=== PATIENT | female | born 1985 | race Caucasian/White ===

== ENCOUNTER 2019-03-21 18:50 | Outpatient (CLI) | payer OTHER ==
[2019-03-22] MEDS ORDERED: PREN1TAB60 PO (15:33)
[2019-03-22] MEDS ORDERED: VALA10004 PO (15:33)
== END 2019-03-21 20:57 | disposition home or self-care (01) ==
LOC: LDOP 18:50
PROVIDERS: ATTEND Obstetrics & Gynecology
DX: Z34.83 Encounter for supervision of other normal pregnancy, third trimester (principal); Z3A.39 39 weeks gestation of pregnancy
CPT/HCPCS: 59025; 89060; 99211; G0463; Q0114

== ENCOUNTER 2019-03-22 15:27 | Outpatient (CLI) | payer SELFPAY ==
[~2019-03-22] VITALS: Ht 166.4 cm; Wt 94.0 kg
[2019-03-22] MEDS ORDERED: PREN1TAB60 PO (15:33)
[2019-03-22] MEDS ORDERED: VALA10004 PO (15:33)
[2019-03-22 15:37] VITALS: BP 130/66
[2019-03-22 17:36] LABS: MICROSCOPIC AUTO
== END 2019-03-22 17:55 | disposition home or self-care (01) ==
LOC: LDOP 15:27
PROVIDERS: ATTEND Obstetrics & Gynecology
DX: O26.893 Other specified pregnancy related conditions, third trimester (principal); R10.9 Unspecified abdominal pain; Z3A.39 39 weeks gestation of pregnancy
CPT/HCPCS: 59025; 81001; 99211; G0463

== ENCOUNTER 2019-03-23 03:25 | Inpatient (IN) | payer OTHER ==
[~2019-03-23] VITALS: Ht 167.6 cm; Wt 92.7 kg
[~2019-03-23 03:25] MED LIST: PREN1TAB60 PO; VALA10004 PO
[2019-03-23 03:30] VITALS: BP 125/69
[2019-03-23] MEDS: LACTATED RINGERS 1,000 ML IV SCH ×5 (03:45→23:41)
[2019-03-23] MEDS ORDERED: NEWBORN KIT ONE (03:49)
[2019-03-23] MEDS ORDERED: MISOPROSTOL 200 MCG TABLET ONE (03:49)
[2019-03-23] MEDS ORDERED: LIDOCAINE 1%, 20ML ONE (03:49)
[2019-03-23] MEDS ORDERED: OXYTOCIN 30U/ 0.9% NaCL 500ML 500 ML ONE ×2 (03:49→07:54)
[2019-03-23] MEDS ORDERED: AMPICILLIN 2 GM in SODIUM CHLORIDE 0.9% 100 ML IVPB STA (03:56)
[2019-03-23] MEDS ORDERED: D5%-LACTATED RINGERS 1,000 ML IV SCH (03:56)
[2019-03-23] MEDS ORDERED: OXYTOCIN 30U/ 0.9% NaCL 500ML 500 ML IV ONE (03:56)
[2019-03-23] MEDS ORDERED: ONDANSETRON 2MG/ML, 2ML IVPush PRN (04:00)
[2019-03-23] MEDS ORDERED: FENTANYL PF 100 MCG/2ML IVPush PRN (04:00)
[2019-03-23] MEDS ORDERED: TERBUTALINE 1 MG/ML, 1ML IVPush PRN (04:00)
[2019-03-23] MEDS ORDERED: TERBUTALINE 1 MG/ML, 1ML SQ PRN (04:00)
[2019-03-23] MEDS ORDERED: FENTANYL PF 100 MCG/2ML IV PRN (04:00)
[2019-03-23] MEDS ORDERED: CALCIUM CARBONATE 500 MG TAB.CHEW PO PRN (04:00)
[2019-03-23] MEDS ORDERED: FENTANYL/BUPIV./NS/PF 250 ML EPIDCONT ONE (04:05)
[2019-03-23] MEDS ORDERED: FENTANYL PF 100 MCG/2ML ONE ×2 (04:05→06:36)
[2019-03-23 04:21] LABS: BASOPHILS # (AUTO) 0.04 x10^3/uL (0-0.1); BASOPHILS % (AUTO) 0 % (0-1); EOSINOPHILS % (AUTO) 0 % (1-7); LYMPHOCYTES # (AUTO) 0.83 x10^3/uL (1-3.4); LYMPHOCYTES % (AUTO) 5 % (22-44); MD NO; MEAN CORPUSCULAR HEMOGLOBIN 33.3 pg (27.0-34.8); MEAN CORPUSCULAR HGB CONC 33.9 g/dL (32.4-35.8); MEAN CORPUSCULAR VOLUME 98.4 fL (80-100); MEAN PLATELET VOLUME 8.1 fL (7.4-10.4); MONOCYTES # (AUTO) 0.57 x10^3/uL (0.2-0.8); MONOCYTES % (AUTO) 4 % (2-9); NEUTROPHILS # (AUTO) 14.08 x10^3/uL (1.8-6.8); NEUTROPHILS % (AUTO) 91 % (42-75); PLATELET COUNT 228 x10^3/uL (130-400); RED BLOOD COUNT 3.68 x10^6/uL (3.82-5.3); RED CELL DISTRIBUTION WIDTH 13.2 % (9.6-15.2)
[2019-03-23] MEDS ORDERED: FENTANYL/BUPIV./NS/PF 250 ML EPIDCONT SCH (07:41)
[2019-03-23] MEDS ORDERED: NALOXONE 0.4 MG/ML, 1ML IVPush PRN (08:00)
[2019-03-23] MEDS: AMPICILLIN 1 GM in SODIUM CHLORIDE 0.9% 50 ML IVPB SCH ×2 (08:00→11:49)
[2019-03-23] MEDS ORDERED: EPHEDRINE 50 MG/ML, 1ML IVPush PRN (08:00)
[2019-03-23] MEDS ORDERED: LACTATED RINGERS 1,000 ML IVBOLUS PRN (08:00)
[2019-03-23] MEDS ORDERED: ACETAMINOPHEN 325 MG TABLET ONE (12:29)
[2019-03-23] MEDS ORDERED: ACETAMINOPHEN 325 MG TABLET PO PRN ×2 (12:30→15:00)
[2019-03-23] MEDS ORDERED: AMPICILLIN 1 GM in SODIUM CHLORIDE 0.9% 100 ML IVPB SCH ×2 (14:43→18:43)
[2019-03-23] MEDS ORDERED: OXYTOCIN 10 UNITS/ML, 1ML IM PRN (15:00)
[2019-03-23] MEDS ORDERED: MISOPROSTOL 200 MCG TABLET PR PRN (15:00)
[2019-03-23] MEDS ORDERED: OXYcodone/APAP 5/325MG TABLET PO PRN (15:00)
[2019-03-23] MEDS ORDERED: ONDANSETRON 2MG/ML, 2ML IV PRN (15:00)
[2019-03-23] MEDS ORDERED: SIMETHICONE 80 MG CHEW TAB PO PRN (15:00)
[2019-03-23] MEDS ORDERED: BISACODYL 10 MG SUPP PR PRN (15:00)
[2019-03-23] MEDS ORDERED: IBUPROFEN 600 MG TABLET ONE (15:09)
[2019-03-23] MEDS: IBUPROFEN 600 MG TABLET PO PRN ×2 (15:10→21:12)
[2019-03-23] MEDS: OXYTOCIN 30U/ 0.9% NaCL 500ML 500 ML IV SCH (15:28)
[2019-03-23 17:36] VITALS: BP 114/74
[2019-03-23 19:15] VITALS: BP 97/59
[2019-03-23] MEDS: DOCUSATE 100 MG CAPSULE PO PRN (21:12)
[2019-03-24 00:10] VITALS: BP 108/61
[2019-03-24] MEDS: OXYTOCIN 30U/ 0.9% NaCL 500ML 500 ML IV SCH ×3 (00:40→20:40)
[2019-03-24 01:02] LABS: BASOPHILS # (AUTO) 0.11 x10^3/uL (0-0.1); BASOPHILS % (AUTO) 1 % (0-1); EOSINOPHILS # (AUTO) 0.09 x10^3/uL (0-0.4); EOSINOPHILS % (AUTO) 1 % (1-7); LYMPHOCYTES # (AUTO) 0.98 x10^3/uL (1-3.4); LYMPHOCYTES % (AUTO) 8 % (22-44); MD NO; MEAN CORPUSCULAR HEMOGLOBIN 33.4 pg (27.0-34.8); MEAN CORPUSCULAR HGB CONC 33.6 g/dL (32.4-35.8); MEAN CORPUSCULAR VOLUME 99.5 fL (80-100); MEAN PLATELET VOLUME 7.5 fL (7.4-10.4); MONOCYTES # (AUTO) 0.75 x10^3/uL (0.2-0.8); MONOCYTES % (AUTO) 6 % (2-9); NEUTROPHILS # (AUTO) 10.75 x10^3/uL (1.8-6.8); NEUTROPHILS % (AUTO) 85 % (42-75); PLATELET COUNT 222 x10^3/uL (130-400); RED BLOOD COUNT 3.32 x10^6/uL (3.82-5.3); RED CELL DISTRIBUTION WIDTH 13.4 % (9.6-15.2)
[2019-03-24 04:30] VITALS: BP 94/56
[2019-03-24] MEDS ORDERED: PRENATAL VIT/IRON/FA 1 EACH TABLET ONE (06:55)
[2019-03-24] MEDS: DOCUSATE 100 MG CAPSULE PO PRN ×2 (07:03→21:43)
[2019-03-24] MEDS: IBUPROFEN 600 MG TABLET PO PRN ×3 (07:03→21:43)
[2019-03-24] MEDS: PRENATAL VIT/IRON/FA 1 EACH TABLET PO SCH (07:03)
[2019-03-24 07:30] VITALS: BP 102/68
[2019-03-24] MEDS: LACTATED RINGERS 1,000 ML IV SCH ×3 (08:02→23:41)
[2019-03-24] MEDS: OXYcodone/APAP 5/325MG TABLET PO PRN ×2 (11:02→15:43)
[2019-03-24 12:02] VITALS: BP 127/76
[2019-03-24 15:44] VITALS: BP 113/67
[2019-03-24 20:00] VITALS: BP 117/63
[2019-03-25] MEDS ORDERED: IBUP-1222 PO (02:06)
[2019-03-25] MEDS ORDERED: OXYC-302 PO (02:06)
[2019-03-25] MEDS: OXYTOCIN 30U/ 0.9% NaCL 500ML 500 ML IV SCH (06:40)
[2019-03-25] MEDS: LACTATED RINGERS 1,000 ML IV SCH (06:43)
[2019-03-25] MEDS: IBUPROFEN 600 MG TABLET PO PRN (08:15)
[2019-03-25] MEDS: DOCUSATE 100 MG CAPSULE PO PRN (08:15)
[2019-03-25] MEDS: PRENATAL VIT/IRON/FA 1 EACH TABLET PO SCH (08:15)
[2019-03-25 08:43] VITALS: BP 106/68
== END 2019-03-25 13:50 | disposition home or self-care (01) | DRG 807 ==
LOC: LDOP 03:25 → LDIP 03:40 → 2NW 16:59
PROVIDERS: ADMIT Obstetrics & Gynecology; ATTEND Obstetrics & Gynecology
PROC: 10E0XZZ Delivery of Products of Conception, External Approach (ICD-10-PCS; principal; 2019-03-23)
PROC: 0KQM0ZZ Repair Perineum Muscle, Open Approach (ICD-10-PCS; 2019-03-23)
PROC: 3E0R3BZ Introduction of Anesthetic Agent into Spinal Canal, Percutaneous Approach (ICD-10-PCS; 2019-03-23)
PROC: 00HU33Z Insertion of Infusion Device into Spinal Canal, Percutaneous Approach (ICD-10-PCS; 2019-03-23)
PROC: 10H07YZ Insertion of Other Device into Products of Conception, Via Natural or Artificial Opening (ICD-10-PCS; 2019-03-23)
DX: O99.824 Streptococcus B carrier state complicating childbirth (principal); Z37.0 Single live birth; Z3A.39 39 weeks gestation of pregnancy; O70.1 Second degree perineal laceration during delivery
CPT/HCPCS: 36415; J7121; 85025; 86850; 86900; G0378; J0290; J3010; J2590; J7120